=== PATIENT | female | born 1965 | race Caucasian/White ===

== ENCOUNTER → 2021-03-28 | Outpatient (CLI) | payer OTHER ==
[2021-03-29 08:15] LABS: RHEUMATOID ARTHRITIS FACTOR 11.4 IU/mL (0.0-13.9)
== END ==
LOC: LAB 12:11
PROVIDERS: Nurse Practitioner Family
DX: D89.9 Disorder involving the immune mechanism, unspecified (principal); M25.50 Pain in unspecified joint; R76.8 Other specified abnormal immunological findings in serum; R53.83 Other fatigue
CPT/HCPCS: 36415; 83520; 84439; 84443; 85652; 86140; 86200; 86431

== ENCOUNTER → 2021-05-10 | Outpatient (CLI) | payer OTHER ==
[2021-05-10 11:46] LABS: HEMOGLOBIN 13.6 gm/dl (12.3-15.3); RED BLOOD COUNT 4.46 M/UL (4.00-5.10); WHITE BLOOD COUNT 5.8 K/UL (4.5-11.0)
[2021-05-10 12:03] LABS: BUN/CREATININE RATIO 16 (0-10)
== END ==
LOC: RAD 10:54
PROVIDERS: Colon & Rectal Surgery
DX: Z01.818 Encounter for other preprocedural examination (principal); L29.0 Pruritus ani
CPT/HCPCS: 36415; 71046; 80048; 85025; 93005